=== PATIENT | female | born 1955 | race Hispanic/Latino ===

== ENCOUNTER → 2024-04-30 | Outpatient (CLI) | payer OTHER, MEDICARE ==
[~2024-04-30] MED LIST: ALPR2TAB7 PO; CHOL500051 PO; TRAZ-185 PO; VICODIN PO
--- NOTE | 2024-04-30 14:43 | HMCIMG ---
CT HEAD/BRAIN W/O CONTRAST HISTORY: No additional history given. COMPARISON: None TECHNIQUE: Multiple sequential axial images of the head were obtained from the base of the skull through vertex. Patient was not given contrast through intravenous route. FINDINGS: The ventricles and extraventricular CSF spaces are dilated consistent with cerebral atrophy. Bilateral basal ganglia calcifications are seen. There may be arachnoid cyst in the posterior fossa at midline. Nonspecific white matter changes seen. There is no midline shift, mass effect or herniation. No acute intracranial bleed is seen. Visualized portion of the paranasal sinuses are grossly within normal limits. IMPRESSION: 1. No acute intracranial bleed is seen. 2. Atrophy with white matter changes. CT was performed with one or more following dose reduction techniques: automated exposure control, adjustment of the mA and kv according to patient's size, or use of a iterative reconstruction technique.
== END | disposition home or self-care (01) ==
LOC: RAH 12:53
PROVIDERS: ATTEND Family Medicine
DX: G93.0 Cerebral cysts (principal); G31.9 Degenerative disease of nervous system, unspecified; R42 Dizziness and giddiness; R29.6 Repeated falls
CPT/HCPCS: 70450

== ENCOUNTER → 2024-07-12 | Outpatient (CLI) | payer MEDICARE | END | disposition home or self-care (01) | LOC: SHCH 12:47 | PROVIDERS: ATTEND Internal Medicine | DX: I69.993 Ataxia following unspecified cerebrovascular disease (principal) | CPT/HCPCS: 93306 ==

== ENCOUNTER → 2024-08-09 | Outpatient (CLI) | payer MEDICARE | END | disposition home or self-care (01) | LOC: SHCH 07:41 | PROVIDERS: ATTEND Internal Medicine | DX: R09.89 Other specified symptoms and signs involving the circulatory and respiratory systems (principal) | CPT/HCPCS: 93880 ==